=== PATIENT | female | born 1960 | race Caucasian/White ===

== ENCOUNTER 2016-10-07 07:00 | Inpatient (IN) | payer OTHER ==
[~2016-10-07] VITALS: Ht 152.4 cm; Wt 75.0 kg
[2016-10-07 07:46] VITALS: BP 143/79
[2016-10-07 07:51] VITALS: BP 143/79
[2016-10-07 17:08] LABS: T3 TOTAL 1.19 ng/mL
[2016-10-07 17:18] VITALS: BP 143/47
[2016-10-07 17:23] LABS: CHOLESTEROL/HDL RATIO 4.7; MAGNESIUM 1.6 mg/dL (1.8-2.4)
[2016-10-07 17:35] VITALS: BP 140/50
[2016-10-07 17:36] LABS: FREE T4 1.04 ng/dL (0.76-1.46); FREE THYROXINE INDEX 2.9 ug/dL (1.4-4.5); T4(THYROXINE) 8.4 ug/dL (4.7-13.3)
[2016-10-07 17:59] VITALS: BP 144/62
[2016-10-07] MEDS ORDERED: LEVOTHYROXINE0.05 M2 PO (18:09)
[2016-10-07 20:29] VITALS: BP 146/60
[2016-10-08 05:20] VITALS: BP 149/61
[2016-10-08 07:29] LABS: microscopic required? NO
[2016-10-08 07:34] LABS: BASOPHIL % 0.3 % (0-2); PLATELET COUNT 271 x10^3mcL (130-400); RED CELL DISTRIBUTION WIDTH 14.8 % (11.5-14.5)
[2016-10-08 07:41] LABS: urine erythrocyte NEGATIVE (NEGATIVE)
[2016-10-08 07:46] LABS: CALCIUM 8.1 mg/dL (8.5-10.1); CARBON DIOXIDE 25.5 mmol/L (21-32); CHLORIDE SERUM 102 mmol/L (98-107); CREATININE SERUM 0.7 mg/dL (0.6-1.0); GFR1 > 60 mL/min; GLUCOSE SERUM 144 mg/dL (74-106); MAGNESIUM 1.7 mg/dL (1.8-2.4); PHOSPHOROUS 3.6 mg/dL (2.5-4.9); POTASSIUM SERUM 3.4 mmol/L (3.5-5.1); SODIUM SERUM 136 mmol/L (136-145)
[2016-10-08 09:49] VITALS: BP 136/78
[2016-10-08] MEDS ORDERED: ZOCOR10 MG PO (13:07)
[2016-10-08] MEDS ORDERED: ACETAMINOPHEN-H1 TA1 PO (13:08)
[2016-10-08] MEDS ORDERED: COLACE100 MG PO (13:09)
[2016-10-08] MEDS ORDERED: METFORMIN850 M1 PO (13:10)
[2016-10-08 13:37] VITALS: BP 136/78
[2016-10-08 13:43] VITALS: BP 117/55
== END 2016-10-08 14:47 | disposition home or self-care (01) | DRG 363 ==
LOC: DS 07:00 → NM 09:00 → DS 09:00 → OR 12:00 → DU 15:47
PROVIDERS: Surgery; ADMIT Family Medicine
PROC: 07B60ZZ Excision of Left Axillary Lymphatic, Open Approach (ICD-10-PCS; 2016-10-07)
PROC: 0HBU0ZZ Excision of Left Breast, Open Approach (ICD-10-PCS; principal; 2016-10-07 12:00)
DX: C50.912 Malignant neoplasm of unspecified site of left female breast (principal); C77.3 Secondary and unspecified malignant neoplasm of axilla and upper limb lymph nodes; E83.42 Hypomagnesemia; E11.9 Type 2 diabetes mellitus without complications; D64.9 Anemia, unspecified; I10 Essential (primary) hypertension; E03.9 Hypothyroidism, unspecified; E78.5 Hyperlipidemia, unspecified; E87.6 Hypokalemia; Z88.8 Allergy status to other drugs, medicaments and biological substances; Z87.891 Personal history of nicotine dependence
CPT/HCPCS: 83880; 84439; 94150; J0690; J1170; J1650; J2001; J2250; J2270; J2405; J3010; J3490; J7030; Q0092; Q9968